=== PATIENT | female | born 1940 | race Caucasian/White ===

== ENCOUNTER → 2024-10-02 10:03 | Outpatient (REF) | payer MEDICARE, OTHER, SELFPAY | LOC: RAD 10:03 | PROVIDERS: ATTENDING PHYSICIAN Surgery Vascular Surgery; FAMILY PHYSICIAN Internal Medicine | DX: I73.9 Peripheral vascular disease, unspecified (principal); I65.23 Occlusion and stenosis of bilateral carotid arteries | CPT/HCPCS: 93880; 93922; 93925 ==

== ENCOUNTER → 2024-12-12 11:01 | Outpatient (REF) | payer MEDICARE, OTHER, SELFPAY | LOC: HWRCS 11:01 | PROVIDERS: ATTENDING PHYSICIAN Internal Medicine Cardiovascular Disease; FAMILY PHYSICIAN Internal Medicine | DX: I10 Essential (primary) hypertension (principal); I50.30 Unspecified diastolic (congestive) heart failure | CPT/HCPCS: 93306 ==

== ENCOUNTER 2025-07-18 13:33 | Emergency (ER) | payer MEDICARE, OTHER, SELFPAY ==
[2025-07-18 13:37] VITALS: BP 146/87
[2025-07-18 13:57] LABS: Hematocrit 31.1 % (37.0-47.0); Hemoglobin 9.5 g/dL (12.0-16.0); Mean Corp Hgb Conc. 30.5 g/dL (33.0-37.0); Mean Corpuscular Volume 94.2 fL (81.0-99.0); Nucleated Red Blood Cells % 0 %; Platelet Count 289 10^3/uL (130-400); Red Cell Dist. Width 14.8 % (11.5-14.5)
[2025-07-18 14:24] LABS: ALT (SGPT) 12 U/L (0-35); AST (SGOT) 17 U/L (14-36); Albumin 3.8 g/dl (3.5-5.0); Alkaline Phosphatase 72 U/L (38-126); Blood Urea Nitrogen 41 mg/dl (7-17); Calcium 8.9 mg/dl (8.4-10.2); Carbon Dioxide 26 mmol/L (22-30); Chloride 106 mmol/L (98-107); Glucose 141 mg/dl (70-99); Potassium 5.0 mmol/L (3.5-5.1); Sodium 134 mmol/L (135-145); Total Protein 6.3 g/dl (6.3-8.2); eGFR 31.41
--- NOTE | 2025-07-18 16:41 | ED.GENMED ---
History of Present Illness
General
Chief Complaint: Dizziness
Source: patient
Exam Limitations: none
Time Seen by Provider: 07/18/25 16:04
Nursing documentation reviewed up to this point in time: agreed with except (Specifically denies shortness of breath to me)
History of Present Illness
History of Present Illness:
84-year-old female with a past medical history of hypertension, hyperlipidemia, CAD, CHF, COPD, GERD, CKD who presents to the emergency room with her son for evaluation of generalized weakness. Patient reports symptoms have been ongoing for the
past 3 days or so. She reports that she feels very fatigued and feels weak on her feet. Came to the ER for evaluation. She does report some occasional paresthesias in her arms left greater than right. She has not noted any chest pain. She
denies any shortness of breath (contrary to triage note). She denies any recent cough, fever, URI symptoms. She denies any abdominal pains. She chronically deals with intermittent constipation/diarrhea but no acute change in the symptoms. She
has not noted any urinary symptoms�she has chronic incontinence not acutely changed. She says that she has a history of anemia/iron deficiency in the past and has had similar symptoms and was concerned she could be anemic once again.
Past History
Past History
ED Past Medical History: CAD, CHF, COPD, GERD, Hypercholesterolemia and Other (Arthritis, chronic anemia, GI bleed, cataracts)
ED Past Surgical History: Orthopedic
Social History
Tobacco: Smoker
Alcohol: None
Personal: Single
Living: alone
Review of Systems
Review of Systems
All Other Systems: ROS reviewed and negative except as documented in HPI and ROS
Constitutional: Reports fatigue; Denies fever
EENT: Denies sore throat or runny nose
Respiratory: Denies cough or trouble breathing
Cardiac: Denies chest pain or palpitations
ABD/GI: Denies abdominal pain, nausea or vomiting
: Denies dysuria or flank pain
Musculoskeletal: Denies neck pain or back pain
Neurological: Reports dizzy and weakness (Generalized); Denies headache or numbness
Phy Exam
Physical Exam
Physical Exam:
General: Awake, alert, oriented x3; no acute distress
Head: Normocephalic, atraumatic
Eyes: Conjunctiva normal, EOMI, pupils equal round and reactive to light bilaterally
Throat: Airway intact, handling secretions
Neck: Trachea midline, no JVD
Lungs: Clear to auscultation bilaterally, no wheezing, rales, rhonchi appreciated
Heart: Regular rate and rhythm, no murmurs, gallops, or rubs appreciated
Abd: Soft, non distended, nontender
Neuro: Grossly intact�specifically motor and sensory intact in her extremities
Skin: Warm and dry
Extremities: No edema in extremities, equal pulses in all extremities
Scores
Heart Failure Risk
Heart Failure Risk Score: Not Applicable
Heart Score for Chest Pain Patients
STEMI patient?: Not applicable
Withdrawal Assessment of Alcohol
Withdrawal Assessment Completed?: Not applicable
Course
Orders/Labs/Results
Orders:
Orders
07/18/25 13:40
Electrocardiogram (*1) Urgent
Reason for Study: Vertigo / Dizzy
EKG- Treatment ONCE
07/18/25 13:49
Complete Blood Count/With Diff Urgent
Comprehensive Metabolic Panel Urgent
07/18/25 16:05
0.9% Sodium Chloride 1000 ml [Nss] 1,000 ml IV BOLUS
07/18/25 16:20
0.9% Sodium Chloride 1000 ml [Nss] 1,000 ml IV BOLUS
07/18/25 16:48
CR Chest - 2 Views Urgent
Comment:
Reason For Exam: weakness, fatigue
07/18/25 17:04
COVID-19 Antigen Urgent
Source: Nasal Swab
Troponin I Urgent
Influenza A+B Rapid Molecular Urgent
SCOTTIE Source: Nasal Swab
Specimen Description:
07/18/25 18:12
Urinalysis Reflex To Culture Urgent
Date Specimen was Collected: 07/18/25
Time Specimen was Collected: 17:52
Abnormal Lab Results
07/18/25
13:49
RBC 3.30 L 10^6/uL
(4.20-5.40)
Hgb 9.5 L g/dL
(12.0-16.0)
Hct 31.1 L %
(37.0-47.0)
MCHC 30.5 L g/dL
(33.0-37.0)
RDW 14.8 H %
(11.5-14.5)
Absolute Neuts (auto) 7.2 H 10^3/uL
(1.4-6.5)
Neutrophils % 77.9 H %
(42.2-75.2)
Lymphocytes % 13.3 L %
(20.5-51.1)
Sodium 134 L mmol/L
(135-145)
BUN 41 H mg/dl
(7-17)
Creatinine 1.6 H mg/dL
(0.6-1.0)
Glucose 141 H mg/dl
(70-99)
07/18/25 13:49
07/18/25 13:49
Vital Signs
Initial and Last Documented VS:
Initial Vital Signs
Temp Pulse Resp BP Pulse Ox
36.6 C 75 16 146/87 100
07/18/25 13:37 07/18/25 13:37 07/18/25 13:37 07/18/25 13:37 07/18/25 13:37
Last Documented Vital Signs
Temp Pulse Resp BP Pulse Ox
36.6 C 71 21 182/60 97
07/18/25 13:37 07/18/25 17:21 07/18/25 17:21 07/18/25 17:21 07/18/25 16:45
MDM/Problems Addressed
Differential Diagnosis Includes:
Differential diagnosis for generalized weakness is wide and includes but not limited to: Anemia, dehydration, electrolyte abnormality, infection including UTI, viral syndrome, polypharmacy, deconditioning, dysrhythmia; certainly by exam she does not
appear to be in CHF
MDM/Problems Addressed:
84-year-old female presents to the ER with her son for evaluation of generalized weakness and fatigue over the past few days. Vitals and exam are as above. She had labs sent in triage including CBC which shows anemia to 9.5�this is stable for her
and unlikely to be of acute clinical significance; son says that she recently had hemoglobin in the 9s. CMP does show renal insufficiency with a creatinine of 1.6 from baseline value of 0.8 in 2021 with elevated BUN. EKG shows normal sinus rhythm.
Patient admits she has not been drinking much water recently certainly dehydration could account for symptoms, will provide some IV fluids. Can add viral swabs and urinalysis. Check chest x-ray to rule out pneumonia; she is not overtly fluid
overloaded to suggest CHF. Can check troponin given report of extremity paresthesias as well although no chest pain to suggest ACS. Will reassess after the above.
Viral swabs negative. Urinalysis bland. Chest x-ray no pneumonia or edema. Her troponin is undetectable. Feeling a bit better after fluids, suspect this may be dehydration. Encouraged to increase her fluids at home, follow-up with her primary
doctor as an outpatient. At this point no indication for admission. Patient and son feel comfortable with discharge home. All questions answered.
*Pulse Oximetry
SaO2: 98
Oxygen Mode of Delivery: Room air
Patient hypoxic: no (98%)
*EKG
Interpreted by ED Provider?: Yes
Heart Rate: 70
Rate: normal
Rhythm: sinus
[place]: normal axis
Interval: normal interval
QRS Pattern: normal QRS
Ischemia: no ischemia
*Critical Care Note
Total Time (30-74mins, 75-104mins- exclusive of procedures): Not Applicable
Data Reviewed
Review of Other/Old Records Reveals: Labs and Records
Source: patient, records and family
ED Attending Note
-
Portions of this chart may have been created with voice recognition software.� Occasional wrong word or��sound alike� substitutions may have occurred due to the inherent limitations of voice recognition software.
Discharge Plan
Departure
Patient Disposition: Home (Routine Discharge)
Date of Disposition: 07/18/25
Time of Disposition: 18:33
Patient with high blood pressure during this ER visit?: Yes
Discharge Problem:
Weakness, Dehydration
Instructions: Dehydration in adults - ED (DC)
Prescriptions:
No Action
pantoprazole 40 MG tablet,delayed release (DR/EC)
40 mg PO BID
cholecalciferol (vitamin D3) 25 mcg (1,000 unit) Tablet
25 mcg PO DAILY Qty: 0
alprazolam 0.25 MG tablet
0.125 mg PO HS PRN (Reason: sleep)
Patient Comments:
07/16/2022: last filled 06/20/22, 180 tabs for 90 days from [facility]#[id number]
atorvastatin 80 mg tablet
40 mg PO QPM
aspirin 81 mg Tablet,Delayed Release (Dr/Ec)
81 mg PO QPM
metoprolol succinate 25 mg Tablet Extended Release 24 Hr
25 mg PO QPM
albuterol sulfate 90 mcg/actuation HFA aerosol inhaler
2 puff INHALATION R Q6 PRN (Reason: sob/wheezing)
ipratropium-albuterol 0.5 mg-3 mg(2.5 mg base)/3 mL Solution For Nebulization
3 ml inhalation R QID PRN (Reason: SOB/wheezing) Qty: 60 0RF
spironolactone 25 mg tablet
12.5 mg PO DAILY Qty: 30 0RF
acetaminophen 500 mg Tablet
1,000 mg PO TIDPRN PRN (Reason: PAIN)
furosemide [Lasix] 40 mg tablet
40 mg PO DAILY Qty: 30 0RF
losartan 50 mg tablet
50 mg PO DAILY 30 Days Qty: 30 0RF
Referrals:
Tyshawn Ulloa MD [Family Provider, Internal Medicine] - Follow up in 1 week
Activity Restrictions/Additional Instructions:
You should follow-up with your primary doctor in the next week to be reassessed after your ER visit and to get follow-up blood work to ensure improvement in your kidney function after receiving fluids. If you feel your symptoms are worsening or if
you develop any new symptoms that are concerning to you please return to the ER for reassessment.
Thank you for visiting the Emergency Department at [facility].
1. Please schedule a follow up appointment as directed. Call first thing tomorrow morning to make an appointment.
2. If indicated, please take your medications as instructed and indicated on discharge paperwork.
3. If any of your symptoms do not improve, or persist, or become more severe within 6-12 hours, please return to the emergency department for further care.
4. Please return to the emergency department if you develop a headache, neck pain/stiffness, fever greater than 100.4F, chest pain, shortness of breath, persistent nausea, vomiting, slurred speech, difficulty walking, numbness/tingling, weakness,
signs of infection or any other symptoms that are worrisome to you.
Please call [phone] if you have any questions.
Interventions
Interventions:
*Risk Screen - Suicide Last Done: 07/18/25 16:30
*General Assessment Last Done: 07/18/25 16:30
*Neglect/Abuse Screening Last Done: 07/18/25 16:30
*ED- Fall Risk Assessment Last Done: 07/18/25 16:30
*ED COVID-19 Vaccine History Last Done: 07/18/25 16:30
*ED Influenza Vaccine History Last Done: 07/18/25 16:30
ED- Neurological Assessment Last Done: 07/18/25 16:30
ED Swallowing Screen Last Done: 07/18/25 16:30
Discharge Date and Time
Print Language: [place]
[2025-07-18] MEDS: NSS 1000 IV (17:20)
[2025-07-18 17:21] VITALS: BP 182/60
[2025-07-18 17:44] LABS: COVID-19 Antigen Negative (Negative)
[2025-07-18 17:50] VITALS: BMI 25.5
[2025-07-18 17:58] LABS: Troponin I < 0.012 ng/ml
[2025-07-18 18:25] LABS: Urine Character Clear (Clear)
== END 2025-07-18 18:47 | disposition home or self-care (01) ==
LOC: EMR 13:33
PROVIDERS: Emergency Medicine; EMERGENCY PHYSICIAN Emergency Medicine; FAMILY PHYSICIAN Internal Medicine
DX: R53.1 Weakness (principal); R42 Dizziness and giddiness; R20.2 Paresthesia of skin; E86.0 Dehydration; Z11.52 Encounter for screening for COVID-19; I13.0 Hypertensive heart and chronic kidney disease with heart failure and stage 1 through stage 4 chronic kidney disease, or unspecified chronic kidney disease; I50.9 Heart failure, unspecified; N18.9 Chronic kidney disease, unspecified; I25.10 Atherosclerotic heart disease of native coronary artery without angina pectoris; J44.9 Chronic obstructive pulmonary disease, unspecified; K21.9 Gastro-esophageal reflux disease without esophagitis; E78.00 Pure hypercholesterolemia, unspecified; D64.9 Anemia, unspecified; M06.9 Rheumatoid arthritis, unspecified; M41.9 Scoliosis, unspecified; F17.210 Nicotine dependence, cigarettes, uncomplicated; Z79.82 Long term (current) use of aspirin; Z85.820 Personal history of malignant melanoma of skin
CPT/HCPCS: 99284; 96360; 71046; 80053; 81003; 84484; 85025; 87502; 87811; 93005

== ENCOUNTER 2025-07-27 14:29 | Emergency (ER) | payer MEDICARE, OTHER, SELFPAY ==
[2025-07-27 14:36] VITALS: BP 103/83
[2025-07-27 15:02] LABS: Hematocrit 30.8 % (37.0-47.0); Hemoglobin 9.8 g/dL (12.0-16.0); Mean Corp Hgb Conc. 31.8 g/dL (33.0-37.0); Mean Corpuscular Volume 88.0 fL (81.0-99.0); Nucleated Red Blood Cells % 0 %; Platelet Count 248 10^3/uL (130-400); Red Cell Dist. Width 14.9 % (11.5-14.5)
[2025-07-27 15:15] LABS: ALT (SGPT) 12 U/L (0-35); AST (SGOT) 23 U/L (14-36); Albumin 4.3 g/dl (3.5-5.0); Alkaline Phosphatase 79 U/L (38-126); Blood Urea Nitrogen 40 mg/dl (7-17); Calcium 9.0 mg/dl (8.4-10.2); Carbon Dioxide 21 mmol/L (22-30); Chloride 105 mmol/L (98-107); Glucose 83 mg/dl (70-99); Potassium 5.5 mmol/L (3.5-5.1); Sodium 132 mmol/L (135-145); Total Protein 6.9 g/dl (6.3-8.2); eGFR 36.87
[2025-07-27 18:09] LABS: Potassium 4.9 mmol/L (3.5-5.1)
--- NOTE | 2025-07-27 18:35 | ED.GENMED ---
History of Present Illness
General
Chief Complaint: Abnormal Lab Value
Source: patient and family ([id number]/son)
Exam Limitations: none
Time Seen by Provider: 07/27/25 17:02
History of Present Illness
History of Present Illness:
84-year-old female sent for abnormal labs. Was initially felt it was a low hemoglobin but in reality it was a high potassium of 6.2 done this morning. This was ordered by staff electronic warfare officer. She complains of some general weakness and tingling in the
left arm but this has been going on for weeks to months. This is not a new issue. She denies any other new complaints.
Past History
Past History
ED Past Medical History: CAD, CHF, COPD, GERD, Hypercholesterolemia and Other (Arthritis, chronic anemia, GI bleed, cataracts)
ED Past Surgical History: Orthopedic
Social History
Tobacco: Smoker
Alcohol: None
Personal: Single
Living: alone
Review of Systems
Review of Systems
All Other Systems: Not applicable
Constitutional: Denies fever
Respiratory: Reports no symptoms
Cardiac: Reports no symptoms
Phy Exam
Physical Exam
Physical Exam:
GENERAL: Alert and oriented in no apparent distress
EYE: Orbits normal.
NECK: Supple
ENT: Pharynx without erythema
CARDIAC: Regular rate and rhythm with mild midsystolic murmur
LUNGS: Clear breath sounds,normal
ABDOMEN: Soft, without focal tenderness or distention
NEUROLOGICAL: Alert and oriented , grossly non-focal
SKIN: Warm and dry, no rash or lesion, no discoloration, skin intact.
MUSCULOSKELETAL: No edema,no deformity.Good color
PSYCH: Normal and appropriate interaction.
Course
Orders/Labs/Results
Orders:
Orders
07/27/25 14:54
Type And Crossmatch [Type+Screen] Urgent
Complete Blood Count/With Diff Urgent
Comprehensive Metabolic Panel Urgent
07/27/25 17:24
EKG [Electrocardiogram (*1)] Urgent
Reason for Study: Other
Other Reason for Exam: Hyperkalemia
07/27/25 17:25
EKG- Treatment ONCE
07/27/25 17:46
Potassium Urgent
Abnormal Lab Results
07/27/25
14:54
RBC 3.50 L 10^6/uL
(4.20-5.40)
Hgb 9.8 L g/dL
(12.0-16.0)
Hct 30.8 L %
(37.0-47.0)
MCHC 31.8 L g/dL
(33.0-37.0)
RDW 14.9 H %
(11.5-14.5)
Lymphocytes % 17.6 L %
(20.5-51.1)
Sodium 132 L mmol/L
(135-145)
Potassium 5.5 H mmol/L
(3.5-5.1)
Carbon Dioxide 21 L mmol/L
(22-30)
BUN 40 H mg/dl
(7-17)
Creatinine 1.4 H mg/dL
(0.6-1.0)
07/27/25 14:54
07/27/25 17:46
Vital Signs
Initial and Last Documented VS:
Initial Vital Signs
Temp Pulse Resp Pulse Ox
98.0 F 66 18 94
07/27/25 14:33 07/27/25 14:33 07/27/25 14:33 07/27/25 14:33
Last Documented Vital Signs
Temp Pulse Resp BP Pulse Ox
98.0 F 66 18 103/83 94
07/27/25 14:33 07/27/25 14:33 07/27/25 14:33 07/27/25 14:36 07/27/25 14:33
MDM/Problems Addressed
Differential Diagnosis Includes:
Patient stable and nontoxic in no distress. Benign exam. Potassium repeated and 4.9. Discussed with cardiology. Given the minimal changes in potassium we will hold spironolactone and follow-up.
*Pulse Oximetry
SaO2: 94
Oxygen Mode of Delivery: Room air
Patient hypoxic: no
*EKG
Interpreted by ED Provider?: Yes
Interpretation: abnormal
Comparison EKG: no changes
Heart Rate: 62
Rate: normal
Rhythm: sinus
[place]: left axis deviation
Interval: normal interval
QRS Pattern: normal QRS
Ischemia: no ischemia
*Critical Care Note
Total Time (30-74mins, 75-104mins- exclusive of procedures): Not Applicable
Data Reviewed
Review of Other/Old Records Reveals: Labs, Testing and Other (Echocardiogram)
ED Attending Note
-
Portions of this chart may have been created with voice recognition software.� Occasional wrong word or��sound alike� substitutions may have occurred due to the inherent limitations of voice recognition software.
Discharge Plan
Departure
Patient Disposition: Home (Routine Discharge)
Date of Disposition: 07/27/25
Time of Disposition: 18:38
Patient with high blood pressure during this ER visit?: Yes
Discharge Problem:
Hyperkalemia, chronic anemia
Instructions: Hyperkalemia (DC), BLOOD PRESSURE
Prescriptions:
No Action
pantoprazole 40 MG tablet,delayed release (DR/EC)
40 mg PO BID
cholecalciferol (vitamin D3) 25 mcg (1,000 unit) Tablet
25 mcg PO DAILY Qty: 0
alprazolam 0.25 MG tablet
0.125 mg PO HS PRN (Reason: sleep)
Patient Comments:
07/16/2022: last filled 06/20/22, 180 tabs for 90 days from [facility]#[id number]
atorvastatin 80 mg tablet
40 mg PO QPM
aspirin 81 mg Tablet,Delayed Release (Dr/Ec)
81 mg PO QPM
metoprolol succinate 25 mg Tablet Extended Release 24 Hr
25 mg PO QPM
albuterol sulfate 90 mcg/actuation HFA aerosol inhaler
2 puff INHALATION R Q6 PRN (Reason: sob/wheezing)
ipratropium-albuterol 0.5 mg-3 mg(2.5 mg base)/3 mL Solution For Nebulization
3 ml inhalation R QID PRN (Reason: SOB/wheezing) Qty: 60 0RF
spironolactone 25 mg tablet
12.5 mg PO DAILY Qty: 30 0RF
acetaminophen 500 mg Tablet
1,000 mg PO TIDPRN PRN (Reason: PAIN)
furosemide [Lasix] 40 mg tablet
40 mg PO DAILY Qty: 30 0RF
losartan 50 mg tablet
50 mg PO DAILY 30 Days Qty: 30 0RF
Referrals:
Tyshawn Ulloa MD [Family Provider, Internal Medicine] - Follow up in 2-3 days
Activity Restrictions/Additional Instructions:
Get your potassium repeated in 2 to 3 days.
Stop taking the spironolactone for now
Return sooner with any concerns including shortness of breath significant weight change weakness etc.
Interventions
Interventions:
*Risk Screen - Suicide Last Done: 07/27/25 14:37
*General Assessment Last Done: 07/27/25 17:16
*Neglect/Abuse Screening Last Done: 07/27/25 14:37
*ED- Fall Risk Assessment Last Done: 07/27/25 17:16
*ED COVID-19 Vaccine History Last Done: 07/27/25 17:17
*ED Influenza Vaccine History Last Done: 07/27/25 17:17
Discharge Date and Time
Print Language: BELAR[place]
== END 2025-07-27 19:08 | disposition home or self-care (01) ==
LOC: EMR 14:29
PROVIDERS: EMERGENCY PHYSICIAN Emergency Medicine; FAMILY PHYSICIAN Internal Medicine
DX: E87.5 Hyperkalemia (principal); D64.9 Anemia, unspecified; R03.0 Elevated blood-pressure reading, without diagnosis of hypertension; I25.10 Atherosclerotic heart disease of native coronary artery without angina pectoris; I50.9 Heart failure, unspecified; E78.00 Pure hypercholesterolemia, unspecified; J44.9 Chronic obstructive pulmonary disease, unspecified; K21.9 Gastro-esophageal reflux disease without esophagitis; M19.90 Unspecified osteoarthritis, unspecified site; F17.200 Nicotine dependence, unspecified, uncomplicated; Z79.82 Long term (current) use of aspirin
CPT/HCPCS: 99284; 80053; 84132; 85025; 86850; 86900; 86901; 93005